=== PATIENT | female | born 1950 | race Caucasian/White ===

== ENCOUNTER 2018-10-22 13:26 | Inpatient (IN) | payer MEDICAID ==
[~2018-10-22] VITALS: Ht 157.5 cm; Wt 92.1 kg
[2018-10-22] MEDS ORDERED: ONDANSETRON HCL 4MG/2ML INJ IV ONE (14:00)
[2018-10-22] MEDS ORDERED: ONDANSETRON HCL 4MG/2ML INJ IV STA (14:06)
[2018-10-22] MEDS ORDERED: LORAZEPAM 2MG/ML CPJ IV ONE ×2 (14:30→15:00)
[2018-10-22 15:12] LABS: CLARITY URINE CLOUDY (CLEAR); COLOR URINE ORANGE (YELLOW); KETONES URINE NEGATIVE (NEGATIVE); LEUKOCYTE ESTERASE URINE 1+ (NEGATIVE); NITRITE URINE NEGATIVE (NEGATIVE); OCCULT BLOOD URINE 3+ (NEGATIVE); PH URINE 6.5 (4.5-8.0); PROTEIN URINE 2+ (NEGATIVE); SPECIFIC GRAVITY URINE 1.014 (1.005-1.030)
[2018-10-22 15:41] LABS: *AMPHETAMINES SCREEN URINE NEGATIVE (NEGATIVE); *BARBITURATES SCREEN URINE NEGATIVE (NEGATIVE); *BENZODIAZEPINES SCREEN URINE NEGATIVE (NEGATIVE); *COCAINE SCREEN URINE NEGATIVE (NEGATIVE); OPIATES URINE SCREEN NEGATIVE (NEGATIVE); PHENCYCLIDINE URINE SCREEN NEGATIVE (NEGATIVE)
[2018-10-22 15:42] LABS: CANNABINOID URINE SCREEN NEGATIVE (NEGATIVE)
[2018-10-22 15:58] LABS: METHADONE URINE SCREEN PRESUMTIVE POSITIVE (NEGATIVE)
[2018-10-22 16:33] LABS: BASOPHILS % 0.1 % (0.0-2.0); CHLORIDE 108 mEq/L (98-107); HEMATOCRIT. 34.9 % (36.0-48.0); HEMOGLOBIN. 11.4 g/dL (12.0-16.0); LYMPHOCYTES % 9.3 % (20.0-50.0); MEAN CORPUSCULAR VOLUME 79.3 fL (81.0-99.0); NEUTROPHILS % 86.6 % (40.0-76.0); PLATELET 78 x1000/uL (130-400)
[2018-10-22 16:37] LABS: ETHANOL BLOOD < 10 mg/dL
[2018-10-22] MEDS ORDERED: CEFTRIAXONE 1 G PREMIX 50 ML IV NR (16:45)
[2018-10-22] MEDS ORDERED: ONDANSETRON HCL 4MG/2ML INJ IV PRN (20:30)
[2018-10-22] MEDS ORDERED: CLONIDINE 0.1MG TABLET PO PRN (20:30)
[2018-10-22 21:37] VITALS: BP 164/87
[2018-10-22] MEDS: LORAZEPAM 2MG/ML CPJ IV PRN (22:27)
[2018-10-22] MEDS: ACETAMINOPHEN 325MG TABLET PO PRN (22:27)
[2018-10-22] MEDS: AMLODIPINE 5MG TABLET PO SCH (22:39)
[2018-10-23] VITALS: BP 149/83
[2018-10-23] MEDS ORDERED: QUET25TA34 PO (01:24)
[2018-10-23] MEDS ORDERED: QUET200T29 PO (01:24)
[2018-10-23] MEDS ORDERED: CALC500T6 PO (01:24)
[2018-10-23] MEDS ORDERED: METH10OR11 PO (01:24)
[2018-10-23 04:00] VITALS: BP_SYST 122; BP_SYST 154; BP_DIAS 80; BP_DIAS 84
[2018-10-23] MEDS: LORAZEPAM 2MG/ML CPJ IV PRN (05:26)
[2018-10-23 07:12] LABS: BASOPHILS % 0.1 % (0.0-2.0); EOSINOPHILS % 0.2 % (0.0-5.0); HEMATOCRIT. 33.6 % (36.0-48.0); HEMOGLOBIN. 11.2 g/dL (12.0-16.0); LYMPHOCYTES % 14.9 % (20.0-50.0); MEAN CORPUSCULAR VOLUME 78.3 fL (81.0-99.0); MEAN PLATELET VOLUME 6.9 fl (7.4-10.4); MONOCYTES % 7.2 % (2.0-8.0); NEUTROPHILS % 77.6 % (40.0-76.0); PLATELET 77 x1000/uL (130-400); RED CELL DISTRIBUTION WIDTH 16.2 % (11.6-14.6)
[2018-10-23 07:17] LABS: CHLORIDE 106 mEq/L (98-107)
[2018-10-23 08:00] VITALS: BP 140/76
[2018-10-23] MEDS: AMLODIPINE 5MG TABLET PO SCH ×2 (09:32→21:09)
[2018-10-23] MEDS: METHADONE HCL 10MG TABLET PO SCH (11:35)
[2018-10-23 12:00] VITALS: BP 147/63
[2018-10-23 16:00] VITALS: BP 130/80
[2018-10-23] MEDS ORDERED: CEFTRIAXONE 1 G PREMIX 50 ML IV SCH ×2 (17:00→18:30)
[2018-10-23 20:00] VITALS: BP 147/76
[2018-10-23] MEDS ORDERED: CLON2TAB11 PO (20:51)
[2018-10-23] MEDS ORDERED: QUETIAPINE FUMARATE 50MG TABLET PO SCH (21:00)
[2018-10-23 22:35] LABS: HEPATITIS B SURFACE ANTIGEN NEGATIVE
[2018-10-23 23:05] LABS: HEPATITIS A AB IGM NEGATIVE (NEGATIVE)
[2018-10-24] VITALS: BP 132/73
[2018-10-24 04:00] VITALS: BP_SYST 128; BP_SYST 129; BP_SYST 134; BP_DIAS 54; BP_DIAS 66; BP_DIAS 72
[2018-10-24 06:18] LABS: CHLORIDE 106 mEq/L (98-107)
[2018-10-24 08:00] VITALS: BP 100/56
[2018-10-24] MEDS: AMLODIPINE 5MG TABLET PO SCH (08:16)
[2018-10-24] MEDS: METHADONE HCL 10MG TABLET PO SCH (08:22)
[2018-10-24 09:16] LABS: HEMATOCRIT. 34.2 % (36.0-48.0); HEMOGLOBIN. 11.1 g/dL (12.0-16.0); MEAN CORPUSCULAR VOLUME 79.8 fL (81.0-99.0); MEAN PLATELET VOLUME 7.4 fl (7.4-10.4); PLATELET 80 x1000/uL (130-400); RED BLOOD CELL COUNT 4.28 mill/uL (4.2-5.4); RED CELL DISTRIBUTION WIDTH 16.3 % (11.6-14.6)
[2018-10-24 10:02] LABS: PLATELET ESTIMATE DECREASED
[2018-10-24] MEDS: ACETAMINOPHEN 325MG TABLET PO PRN (10:25)
[2018-10-24 12:00] VITALS: BP 99/50
[2018-10-24 15:53] VITALS: BP 99/50
[2018-10-24 16:00] VITALS: BP 114/59
[2018-10-24] MEDS: LORAZEPAM 2MG/ML CPJ IV PRN (16:32)
== END 2018-10-24 17:19 | disposition home health service (06) | DRG 720 ==
LOC: ER 13:26 → 5WST 18:31 → EDBEDREQ 18:34 → EDBEDREQTM 18:34 → ENRESERV 20:33
PROVIDERS: ADMIT Internal Medicine; ATTEND Internal Medicine
DX: A41.9 Sepsis, unspecified organism (principal); D69.6 Thrombocytopenia, unspecified; E87.8 Other disorders of electrolyte and fluid balance, not elsewhere classified; E44.1 Mild protein-calorie malnutrition; F11.20 Opioid dependence, uncomplicated; F41.9 Anxiety disorder, unspecified; G90.8 Other disorders of autonomic nervous system; E66.9 Obesity, unspecified; G40.909 Epilepsy, unspecified, not intractable, without status epilepticus; I10 Essential (primary) hypertension; M17.0 Bilateral primary osteoarthritis of knee; N39.0 Urinary tract infection, site not specified; Z86.73 Personal history of transient ischemic attack (TIA), and cerebral infarction without residual deficits; Z71.3 Dietary counseling and surveillance; Z68.37 Body mass index [BMI] 37.0-37.9, adult
CPT/HCPCS: 36415; 73560; 80048; 80305; 80307; 80320; 80329; 81003; 84443; 86705; 86709; 86803; 87077; 87186; 87340; 93005; 93306; 93970; 96374; 99285; J0696; J2060; J2405; G0480

== ENCOUNTER 2023-01-26 13:37 | Inpatient (IN) | payer MEDICAID ==
[~2023-01-26] VITALS: Ht 165.1 cm; Wt 98.0 kg
[~2023-01-26 13:37] MED LIST: CALC500T6 PO; CLON2TAB11 PO; METH10OR11 PO; QUET200T30 PO; QUET25TA36 PO
[2023-01-26] MEDS ORDERED: HYDROCODONE/ACETAMINOPHEN 10/325MG TABLET PO STA (14:43)
[2023-01-26 14:47] LABS: BASOPHILS % 0.3 % (0.0-2.0); EOSINOPHILS % 0.5 % (0.0-5.0); HEMATOCRIT. 31.6 % (36.0-48.0); LYMPHOCYTES % 12.9 % (20.0-50.0); MEAN CORPUSCULAR HEMOGLOBIN 26.6 pg (28.0-32.0); MEAN CORPUSCULAR HGB CONC 31.6 g/dL (31.0-37.0); MEAN CORPUSCULAR VOLUME 84.3 fL (81.0-99.0); MEAN PLATELET VOLUME 7.9 fl (7.4-10.4); MONOCYTES % 7.1 % (2.0-8.0); NEUTROPHILS % 79.2 % (40.0-76.0); PLATELET 63 x1000/uL (130-400); RED BLOOD CELL COUNT 3.75 mill/uL (4.2-5.4); RED CELL DISTRIBUTION WIDTH 15.5 % (11.6-14.6)
[2023-01-26 14:50] LABS: DIFFERENTIAL COMMENT 1
[2023-01-26 14:52] LABS: WHITE BLOOD COUNT 1.2 x1000/uL (4.5-11.0)
[2023-01-26] MEDS ORDERED: CLONIDINE 0.1MG TABLET PO PRN (17:15)
[2023-01-26] MEDS ORDERED: IPRATROPIUM/ALBUTEROL 0.5-3(2.5)MG/3ML NEB HHN PRN (17:15)
[2023-01-26] MEDS ORDERED: GUAIFENESIN 200MG/10ML SUGAR FREE UDC PO PRN (17:15)
[2023-01-26] MEDS ORDERED: ONDANSETRON HCL 4MG/2ML INJ IV PRN (17:15)
[2023-01-26] MEDS ORDERED: DOCUSATE SODIUM 100MG CAPSULE PO PRN (17:15)
[2023-01-26] MEDS ORDERED: MAGNESIUM/ALUMINUM HYDROXIDE/SIMETHICONE 30ML UDC PO PRN (17:15)
[2023-01-26] MEDS ORDERED: DEXTROSE 50% WATER 50ML SYRINGE IV PRN (17:30)
[2023-01-26] MEDS ORDERED: LEVE500T19 PO (17:33)
[2023-01-26] MEDS ORDERED: AMLO5TAB88 PO (17:33)
[2023-01-26] MEDS ORDERED: LOSA50TA41 PO (17:33)
[2023-01-26] MEDS ORDERED: FERR325T30 PO (17:33)
[2023-01-26] MEDS: LOSARTAN 50 MG TABLET PO SCH (18:09)
[2023-01-26] MEDS: AMLODIPINE 5MG TABLET PO SCH (18:09)
[2023-01-26] MEDS: LEVETIRACETAM 500MG TABLET PO SCH (18:09)
[2023-01-26 18:14] LABS: ALANINE AMINOTRANSFERASE 25 IU/L (10-49); ALBUMIN 2.9 g/dL (3.2-4.8); ASPARTATE AMINOTRANSFERASE 41 IU/L (<34); BILIRUBIN TOTAL 0.7 mg/dL (0.1-1.0); CALCIUM 8.4 mg/dL (8.7-10.4); CARBON DIOXIDE 24 mEq/L (21-32); CHLORIDE 106 mEq/L (98-107); CREATININE 0.8 mg/dL (0.6-1.0); ETHANOL BLOOD < 10 mg/dL (<10); GLUCOSE 398 mg/dL (70-105); POTASSIUM 3.8 mEq/L (3.5-5.1); PROTEIN TOTAL 6.9 g/dL (6.0-8.3); SODIUM 139 mEq/L (136-145); UREA NITROGEN BLOOD 11 mg/dL (9-23)
[2023-01-26] MEDS: INSULIN LISPRO 100 UNITS/ML SUBCUT SCH ×2 (18:36→22:00)
[2023-01-26 20:07] LABS: TROPONIN I HIGH SENSITIVITY 6 ng/L (3.0-34)
[2023-01-26 21:30] VITALS: BP 126/66; PULSE 81; RESP 21; TEMP 97.9
[2023-01-26] MEDS: BLOOD SUGAR DIAGNOSTIC STRIP TEST SCH (22:00)
[2023-01-27] VITALS: BP 126/66; PULSE 81; RESP 20; TEMP 97.9
[2023-01-27] MEDS: INSULIN GLARGINE 100 UNITS/ML SUBCUT SCH ×2 (00:27→22:29)
[2023-01-27 04:00] VITALS: BP 133/74; PULSE 84; RESP 20; TEMP 98.2
[2023-01-27] MEDS: KETOROLAC 15MG/ML VIAL IV PRN ×2 (07:09→14:48)
[2023-01-27 07:24] LABS: HEMATOCRIT. 27.9 % (36.0-48.0); HEMOGLOBIN. 9.2 g/dL (12.0-16.0); MEAN CORPUSCULAR HEMOGLOBIN 26.9 pg (28.0-32.0); MEAN CORPUSCULAR HGB CONC 32.9 g/dL (31.0-37.0); MEAN CORPUSCULAR VOLUME 81.9 fL (81.0-99.0); MEAN PLATELET VOLUME 7.9 fl (7.4-10.4); PLATELET 70 x1000/uL (130-400); RED BLOOD CELL COUNT 3.41 mill/uL (4.2-5.4); RED CELL DISTRIBUTION WIDTH 15.2 % (11.6-14.6)
[2023-01-27 07:34] LABS: ALANINE AMINOTRANSFERASE 23 IU/L (10-49); ALBUMIN 2.6 g/dL (3.2-4.8); ASPARTATE AMINOTRANSFERASE 38 IU/L (<34); BILIRUBIN TOTAL 0.6 mg/dL (0.1-1.0); CALCIUM 8.6 mg/dL (8.7-10.4); CARBON DIOXIDE 30 mEq/L (21-32); CHLORIDE 109 mEq/L (98-107); CHOLESTEROL 90 mg/dL (<200); GLUCOSE 139 mg/dL (70-105); HDL CHOLESTEROL 36 mg/dL (>65); LDL CHOLESTEROL 58 mg/dL (5-100); POTASSIUM 3.9 mEq/L (3.5-5.1); PROTEIN TOTAL 6.2 g/dL (6.0-8.3); SODIUM 143 mEq/L (136-145); T4 FREE 0.87 ng/dL (0.89-1.76); THYROID STIMULATING HORMONE 1.98 uIU/mL (0.55-4.78); TRIGLYCERIDE 70 mg/dL (0-150); UREA NITROGEN BLOOD 10 mg/dL (9-23)
[2023-01-27] MEDS: INSULIN LISPRO 100 UNITS/ML SUBCUT SCH ×4 (07:50→22:33)
[2023-01-27 08:00] VITALS: BP 114/61; PULSE 78; RESP 18; TEMP 99.1
[2023-01-27] MEDS: BLOOD SUGAR DIAGNOSTIC STRIP TEST SCH ×4 (08:10→21:00)
[2023-01-27 08:30] LABS: DIFFERENTIAL COMMENT 1
[2023-01-27 08:39] LABS: WHITE BLOOD COUNT 1.5 x1000/uL (4.5-11.0)
[2023-01-27] MEDS: LEVETIRACETAM 500MG TABLET PO SCH ×2 (09:00→22:26)
[2023-01-27] MEDS: AMLODIPINE 5MG TABLET PO SCH (09:00)
[2023-01-27] MEDS: LOSARTAN 50 MG TABLET PO SCH (09:00)
[2023-01-27 12:00] VITALS: BP 129/58; PULSE 76; RESP 18; TEMP 98
[2023-01-27 13:17] LABS: PLATELET ESTIMATE DECREASED
[2023-01-27 13:18] LABS: ANISOCYTOSIS 1+
[2023-01-27 16:00] VITALS: BP 160/73; PULSE 83; RESP 19; TEMP 95.9
[2023-01-27 20:00] VITALS: BP 140/66; PULSE 84; RESP 20; TEMP 97.8
[2023-01-27] MEDS: FAMOTIDINE 20MG TABLET PO SCH ×2 (22:26)
[2023-01-27 23:22] LABS: CLARITY URINE TURBID (CLEAR); COLOR URINE YELLOW (YELLOW); GLUCOSE URINE NEGATIVE (NEGATIVE); KETONES URINE TRACE (NEGATIVE); LEUKOCYTE ESTERASE URINE 2+ (NEGATIVE); NITRITE URINE NEGATIVE (NEGATIVE); OCCULT BLOOD URINE TRACE (NEGATIVE); PH URINE 5.5 (4.5-8.0); PROTEIN URINE 2+ (NEGATIVE); SPECIFIC GRAVITY URINE 1.014 (1.005-1.030)
[2023-01-27 23:45] LABS: *AMPHETAMINES SCREEN URINE NEGATIVE (NEGATIVE); *BARBITURATES SCREEN URINE NEGATIVE (NEGATIVE); *BENZODIAZEPINES SCREEN URINE NEGATIVE (NEGATIVE); *COCAINE SCREEN URINE NEGATIVE (NEGATIVE); CANNABINOID URINE SCREEN NEGATIVE (NEGATIVE); ECSTASY MDMA SCREEN URINE NEGATIVE (NEGATIVE); METHADONE URINE SCREEN Neg (NEGATIVE); OPIATES URINE SCREEN PRESUMPTIVE POSITIVE (NEGATIVE); PHENCYCLIDINE URINE SCREEN NEGATIVE (NEGATIVE)
[2023-01-27 23:48] LABS: BACTERIA URINE 3+; RBC URINE 0-2 /hpf (0-2); SQUAMOUS EPITHELIAL CELL URINE 1+ /lpf (RARE/1+); WBC URINE NONE SEEN /hpf (0-2)
[2023-01-28] VITALS: BP 102/44; PULSE 77; RESP 18; TEMP 98.4
[2023-01-28] MEDS: KETOROLAC 15MG/ML VIAL IV PRN ×2 (02:34→17:33)
[2023-01-28 04:00] VITALS: BP 122/57; PULSE 79; RESP 18; TEMP 97.8
[2023-01-28] MEDS: BLOOD SUGAR DIAGNOSTIC STRIP TEST SCH ×6 (07:20→21:00)
[2023-01-28] MEDS: INSULIN LISPRO 100 UNITS/ML SUBCUT SCH ×5 (07:50→21:00)
[2023-01-28 08:00] VITALS: BP 124/62; PULSE 74; RESP 20; TEMP 97.2
[2023-01-28] MEDS: LEVETIRACETAM 500MG TABLET PO SCH ×2 (09:05→21:42)
[2023-01-28] MEDS: LOSARTAN 50 MG TABLET PO SCH (09:05)
[2023-01-28] MEDS: AMLODIPINE 5MG TABLET PO SCH (09:06)
[2023-01-28 12:00] VITALS: BP 123/78; PULSE 80; RESP 21; TEMP 97.2
[2023-01-28 16:00] VITALS: BP 131/87; PULSE 79; RESP 20; TEMP 98.2
[2023-01-28] MEDS ORDERED: ONDANSETRON 4MG ODT PO PRN (19:02)
[2023-01-28 20:00] VITALS: BP 128/55; PULSE 83; RESP 16; TEMP 98.2
[2023-01-28] MEDS: FAMOTIDINE 20MG TABLET PO SCH (21:42)
[2023-01-28] MEDS: INSULIN GLARGINE 100 UNITS/ML SUBCUT SCH (22:14)
[2023-01-29] VITALS: BP_SYST 114; BP_SYST 117; BP_DIAS 57; BP_DIAS 60; PULSE 74; PULSE 85; RESP 18; RESP 20; TEMP 97.8; TEMP 98.2
[2023-01-29 04:00] VITALS: BP 125/83; PULSE 82; RESP 20; TEMP 98.2
[2023-01-29] MEDS: BLOOD SUGAR DIAGNOSTIC STRIP TEST SCH ×4 (06:37→21:00)
[2023-01-29] MEDS: INSULIN LISPRO 100 UNITS/ML SUBCUT SCH ×4 (06:37→21:00)
[2023-01-29 08:00] VITALS: BP 130/63; PULSE 79; RESP 19; TEMP 96.7
[2023-01-29] MEDS: LOSARTAN 50 MG TABLET PO SCH (09:06)
[2023-01-29] MEDS: AMLODIPINE 5MG TABLET PO SCH (09:06)
[2023-01-29] MEDS: LEVETIRACETAM 500MG TABLET PO SCH ×2 (09:06→21:00)
[2023-01-29 12:00] VITALS: BP 145/79; PULSE 86; RESP 20; TEMP 96.7
[2023-01-29] MEDS: KETOROLAC 15MG/ML VIAL IV PRN (13:07)
[2023-01-29 16:00] VITALS: BP 128/67; PULSE 74; RESP 20; TEMP 96.7
[2023-01-29 20:00] VITALS: BP 103/64; PULSE 77; RESP 18; TEMP 98
[2023-01-29] MEDS: FAMOTIDINE 20MG TABLET PO SCH (21:00)
[2023-01-29] MEDS: INSULIN GLARGINE 100 UNITS/ML SUBCUT SCH (21:59)
[2023-01-30] VITALS: BP 114/60; PULSE 74; RESP 18; TEMP 97.8
[2023-01-30 04:00] VITALS: BP 122/56; PULSE 74; RESP 20; TEMP 97.8
[2023-01-30] MEDS: BLOOD SUGAR DIAGNOSTIC STRIP TEST SCH ×4 (07:20→21:00)
[2023-01-30] MEDS: INSULIN LISPRO 100 UNITS/ML SUBCUT SCH ×4 (07:50→21:00)
[2023-01-30 08:00] VITALS: BP 143/78; PULSE 84; RESP 19; TEMP 96.7
[2023-01-30] MEDS: LEVETIRACETAM 500MG TABLET PO SCH ×2 (09:42→21:17)
[2023-01-30] MEDS: AMLODIPINE 5MG TABLET PO SCH (09:42)
[2023-01-30] MEDS: LOSARTAN 50 MG TABLET PO SCH (09:42)
[2023-01-30 12:00] VITALS: BP 120/68; PULSE 78; RESP 20; TEMP 95.6
[2023-01-30 16:00] VITALS: BP 154/79; PULSE 82; RESP 19; TEMP 95.7
[2023-01-30 16:31] LABS: HEMATOCRIT 29.5 % (36.0-48.0); HEMOGLOBIN 9.5 g/dL (12.0-16.0); MEAN CORPUSCULAR HEMOGLOBIN 26.4 pg (28.0-32.0); MEAN CORPUSCULAR HGB CONC 32.3 g/dL (31.0-37.0); PLATELET 70 x1000/uL (130-400); RED CELL DISTRIBUTION WIDTH 15.1 % (11.6-14.6)
[2023-01-30 16:43] LABS: WHITE BLOOD COUNT 1.1 x1000/uL (4.5-11.0)
[2023-01-30 17:12] LABS: ALANINE AMINOTRANSFERASE 25 IU/L (10-49); ALBUMIN 2.6 g/dL (3.2-4.8); ASPARTATE AMINOTRANSFERASE 55 IU/L (<34); BILIRUBIN TOTAL 0.7 mg/dL (0.1-1.0); CALCIUM 8.2 mg/dL (8.7-10.4); CARBON DIOXIDE 27 mEq/L (21-32); CHLORIDE 108 mEq/L (98-107); GLUCOSE 173 mg/dL (70-105); POTASSIUM 3.9 mEq/L (3.5-5.1); PROTEIN TOTAL 6.9 g/dL (6.0-8.3); SODIUM 142 mEq/L (136-145); UREA NITROGEN BLOOD 19 mg/dL (9-23)
[2023-01-30 20:00] VITALS: BP 158/73; PULSE 81; RESP 18; TEMP 97.7
[2023-01-30] MEDS: FAMOTIDINE 20MG TABLET PO SCH (21:17)
[2023-01-30] MEDS: INSULIN GLARGINE 100 UNITS/ML SUBCUT SCH (21:50)
[2023-01-31] VITALS: BP 140/66; PULSE 80; RESP 18; TEMP 97.7
[2023-01-31] MEDS: INSULIN LISPRO 100 UNITS/ML SUBCUT SCH ×4 (07:50→21:10)
[2023-01-31 08:00] VITALS: BP 105/40; PULSE 78; RESP 18; TEMP 97.7
[2023-01-31] MEDS: BLOOD SUGAR DIAGNOSTIC STRIP TEST SCH ×4 (08:01→21:00)
[2023-01-31] MEDS: AMLODIPINE 5MG TABLET PO SCH (09:18)
[2023-01-31] MEDS: LOSARTAN 50 MG TABLET PO SCH (09:18)
[2023-01-31] MEDS: LEVETIRACETAM 500MG TABLET PO SCH ×2 (09:18→21:03)
[2023-01-31] MEDS: ACETAMINOPHEN 325MG TABLET PO PRN ×2 (09:33→18:20)
[2023-01-31 12:00] VITALS: BP 109/52; PULSE 79; RESP 19; TEMP 97.7
[2023-01-31 16:00] VITALS: BP 124/64; PULSE 82; RESP 18; TEMP 97.9
[2023-01-31 20:00] VITALS: BP 124/59; PULSE 96; RESP 20; TEMP 98.1
[2023-01-31] MEDS: FAMOTIDINE 20MG TABLET PO SCH (21:03)
[2023-01-31] MEDS: INSULIN GLARGINE 100 UNITS/ML SUBCUT SCH (21:09)
[2023-01-31 23:06] LABS: IRON 53 ug/dL (50-170); TOTAL IRON BINDING CAPACITY 272 ug/dl (250-425)
[2023-02-01] VITALS: BP 115/85; PULSE 79; RESP 20; TEMP 97.7
[2023-02-01 04:00] VITALS: RESP 20
[2023-02-01] MEDS: BLOOD SUGAR DIAGNOSTIC STRIP TEST SCH ×4 (07:20→21:00)
[2023-02-01] MEDS: INSULIN LISPRO 100 UNITS/ML SUBCUT SCH ×4 (07:50→22:18)
[2023-02-01 08:00] VITALS: BP 134/63; PULSE 85; RESP 19; TEMP 98.1
[2023-02-01] MEDS: LOSARTAN 50 MG TABLET PO SCH (08:40)
[2023-02-01] MEDS: AMLODIPINE 5MG TABLET PO SCH (08:40)
[2023-02-01] MEDS: LEVETIRACETAM 500MG TABLET PO SCH ×2 (08:40→21:40)
[2023-02-01 10:19] LABS: BASOPHILS % 0.2 % (0.0-2.0); EOSINOPHILS % 1.1 % (0.0-5.0); HEMATOCRIT. 30.8 % (36.0-48.0); LYMPHOCYTES % 14.7 % (20.0-50.0); MEAN CORPUSCULAR HEMOGLOBIN 26.6 pg (28.0-32.0); MEAN CORPUSCULAR HGB CONC 32.4 g/dL (31.0-37.0); MEAN CORPUSCULAR VOLUME 82.1 fL (81.0-99.0); MEAN PLATELET VOLUME 7.5 fl (7.4-10.4); MONOCYTES % 6.9 % (2.0-8.0); NEUTROPHILS % 77.1 % (40.0-76.0); PLATELET 74 x1000/uL (130-400); RED BLOOD CELL COUNT 3.75 mill/uL (4.2-5.4); RED CELL DISTRIBUTION WIDTH 14.9 % (11.6-14.6); WHITE BLOOD COUNT 2.3 x1000/uL (4.5-11.0)
[2023-02-01 12:00] VITALS: BP 134/72; PULSE 88; RESP 18; TEMP 96.5
[2023-02-01] MEDS ORDERED: DIATR MEGLU/DIATRIZOATE SOLN 30ML PO NR (12:15)
[2023-02-01] MEDS ORDERED: IOHEXOL-300 100 ML BOTTLE ONE (16:43)
[2023-02-01] MEDS: FUROSEMIDE 20MG/2ML VIAL IVP SCH (18:54)
[2023-02-01 19:21] LABS: CALCIUM 8.5 mg/dL (8.7-10.4); CARBON DIOXIDE 26 mEq/L (21-32); CHLORIDE 109 mEq/L (98-107); CREATININE 0.8 mg/dL (0.6-1.0); GLUCOSE 171 mg/dL (70-105); POTASSIUM 4.1 mEq/L (3.5-5.1); SODIUM 141 mEq/L (136-145); UREA NITROGEN BLOOD 17 mg/dL (9-23)
[2023-02-01 20:00] VITALS: BP 132/81; PULSE 98; RESP 20; TEMP 99.7
[2023-02-01] MEDS: FAMOTIDINE 20MG TABLET PO SCH (21:40)
[2023-02-01 21:55] LABS: INR 1.2; PROTHROMBIN TIME 12.7 sec (9.6-11.0)
[2023-02-01] MEDS: ACETAMINOPHEN 325MG TABLET PO PRN (22:10)
[2023-02-01] MEDS: INSULIN GLARGINE 100 UNITS/ML SUBCUT SCH (22:17)
[2023-02-01 22:41] LABS: HEPATITIS A AB IGM NEGATIVE (Negative); HEPATITIS B CORE AB IGM NEGATIVE (Negative); HEPATITIS B SURFACE ANTIGEN NEGATIVE (Negative); HEPATITIS C AB REACTIVE (Pos) (Negative)
[2023-02-02] VITALS: BP 137/67; PULSE 85; RESP 18; TEMP 98.1
[2023-02-02 04:00] VITALS: RESP 18; TEMP 98.3
[2023-02-02] MEDS: BLOOD SUGAR DIAGNOSTIC STRIP TEST SCH ×4 (06:24→21:36)
[2023-02-02] MEDS: INSULIN LISPRO 100 UNITS/ML SUBCUT SCH ×4 (07:50→21:40)
[2023-02-02 08:00] VITALS: BP 134/75; PULSE 81; RESP 17; TEMP 97.9
[2023-02-02] MEDS: SPIRONOLACTONE 25MG TABLET PO SCH (09:15)
[2023-02-02] MEDS: AMLODIPINE 5MG TABLET PO SCH (09:39)
[2023-02-02] MEDS: LEVETIRACETAM 500MG TABLET PO SCH ×2 (09:39→21:35)
[2023-02-02] MEDS: LOSARTAN 50 MG TABLET PO SCH (09:40)
[2023-02-02] MEDS: ACETAMINOPHEN 325MG TABLET PO PRN ×2 (09:40→18:37)
[2023-02-02] MEDS: FUROSEMIDE 20MG/2ML VIAL IVP SCH (09:40)
[2023-02-02 12:00] VITALS: BP 133/67; PULSE 79; RESP 19; TEMP 97.7
[2023-02-02] MEDS ORDERED: SODIUM BICARBONATE 4% (2.4MEQ) 5ML VIAL IV ONE (12:48)
[2023-02-02] MEDS ORDERED: LIDOCAINE HCL 1% 10 MG/ML 10ML VIAL ONE (12:48)
[2023-02-02 13:20] LABS: FERRITIN 79 ng/mL (10-291); FOLIC ACID (FOLATE) SERUM 15.49 ng/mL (>5.38); VITAMIN B12 SERUM 742 pg/mL (211-911)
[2023-02-02 16:00] VITALS: BP 127/72; PULSE 87; RESP 18; TEMP 97.9
[2023-02-02 20:00] VITALS: BP 158/66; PULSE 98; RESP 16; TEMP 97.7
[2023-02-02] MEDS: FAMOTIDINE 20MG TABLET PO SCH (21:35)
[2023-02-02] MEDS: INSULIN GLARGINE 100 UNITS/ML SUBCUT SCH (21:51)
[2023-02-03] VITALS: BP 123/64; PULSE 77; RESP 17; TEMP 97.5
[2023-02-03 04:00] VITALS: BP 106/31; PULSE 79; RESP 17; TEMP 97.7
[2023-02-03] MEDS: BLOOD SUGAR DIAGNOSTIC STRIP TEST SCH ×4 (06:33→21:07)
[2023-02-03] MEDS: INSULIN LISPRO 100 UNITS/ML SUBCUT SCH ×4 (07:50→22:29)
[2023-02-03 08:00] VITALS: BP 134/72; PULSE 86; RESP 19; TEMP 97.9
[2023-02-03] MEDS: AMLODIPINE 5MG TABLET PO SCH (08:31)
[2023-02-03] MEDS: FUROSEMIDE 20MG/2ML VIAL IVP SCH (08:32)
[2023-02-03] MEDS: LEVETIRACETAM 500MG TABLET PO SCH ×2 (08:32→21:17)
[2023-02-03] MEDS: SPIRONOLACTONE 25MG TABLET PO SCH (08:32)
[2023-02-03] MEDS: LOSARTAN 50 MG TABLET PO SCH (08:32)
[2023-02-03] MEDS ORDERED: FUROSEMIDE 20MG/2ML VIAL IVP NR (09:45)
[2023-02-03 11:56] VITALS: BP 117/64; PULSE 88; RESP 17; TEMP 98.8
[2023-02-03] MEDS: PANTOPRAZOLE SODIUM 40 MG/VIAL IV SCH (12:45)
[2023-02-03 12:59] LABS: HEMATOCRIT 31.4 % (36.0-48.0); HEMOGLOBIN 10.1 g/dL (12.0-16.0); MEAN CORPUSCULAR HEMOGLOBIN 26.2 pg (28.0-32.0); MEAN CORPUSCULAR VOLUME 81.7 fL (81.0-99.0); PLATELET 74 x1000/uL (130-400); RED BLOOD CELL COUNT 3.84 mill/uL (4.2-5.4)
[2023-02-03 13:08] LABS: ALANINE AMINOTRANSFERASE 30 IU/L (10-49); ALBUMIN 3.1 g/dL (3.2-4.8); AMMONIA 76 uMol/L (<32); ASPARTATE AMINOTRANSFERASE 56 IU/L (<34); BILIRUBIN TOTAL 0.9 mg/dL (0.1-1.0); CALCIUM 8.5 mg/dL (8.7-10.4); CARBON DIOXIDE 25 mEq/L (21-32); CHLORIDE 106 mEq/L (98-107); CREATININE 0.8 mg/dL (0.6-1.0); GLUCOSE 185 mg/dL (70-105); POTASSIUM 3.7 mEq/L (3.5-5.1); PROTEIN TOTAL 7.8 g/dL (6.0-8.3); SODIUM 139 mEq/L (136-145); UREA NITROGEN BLOOD 16 mg/dL (9-23)
[2023-02-03 16:00] VITALS: BP 120/59; PULSE 100; RESP 19; TEMP 98.6
[2023-02-03] MEDS ORDERED: CARVEDILOL 3.125 MG TABLET PO NR (17:45)
[2023-02-03 20:00] VITALS: BP 148/70; PULSE 71; RESP 18; TEMP 97.4
[2023-02-03] MEDS: FAMOTIDINE 20MG TABLET PO SCH (21:17)
[2023-02-03] MEDS: INSULIN GLARGINE 100 UNITS/ML SUBCUT SCH (22:34)
[2023-02-04 04:00] VITALS: BP 111/54; PULSE 74; RESP 18; TEMP 98.1
[2023-02-04] MEDS: BLOOD SUGAR DIAGNOSTIC STRIP TEST SCH ×4 (06:59→21:00)
[2023-02-04 07:04] LABS: HEMATOCRIT. 29.1 % (36.0-48.0); HEMOGLOBIN. 9.4 g/dL (12.0-16.0); MEAN CORPUSCULAR HEMOGLOBIN 26.6 pg (28.0-32.0); MEAN CORPUSCULAR HGB CONC 32.3 g/dL (31.0-37.0); MEAN CORPUSCULAR VOLUME 82.3 fL (81.0-99.0); MEAN PLATELET VOLUME 7.9 fl (7.4-10.4); PLATELET 69 x1000/uL (130-400); RED BLOOD CELL COUNT 3.54 mill/uL (4.2-5.4); RED CELL DISTRIBUTION WIDTH 14.8 % (11.6-14.6)
[2023-02-04 07:10] LABS: INR 1.2; PROTHROMBIN TIME 12.7 sec (9.6-11.0)
[2023-02-04 07:20] LABS: ALANINE AMINOTRANSFERASE 26 IU/L (10-49); ALBUMIN 2.8 g/dL (3.2-4.8); AMMONIA 92 uMol/L (<32); ASPARTATE AMINOTRANSFERASE 48 IU/L (<34); BILIRUBIN DIRECT 0.3 mg/dL (<=3.0); BILIRUBIN TOTAL 0.9 mg/dL (0.1-1.0); CALCIUM 8.6 mg/dL (8.7-10.4); CARBON DIOXIDE 27 mEq/L (21-32); CHLORIDE 108 mEq/L (98-107); CREATININE 0.8 mg/dL (0.6-1.0); GLUCOSE 106 mg/dL (70-105); POTASSIUM 3.7 mEq/L (3.5-5.1); SODIUM 141 mEq/L (136-145); UREA NITROGEN BLOOD 13 mg/dL (9-23)
[2023-02-04] MEDS: INSULIN LISPRO 100 UNITS/ML SUBCUT SCH ×4 (07:33→21:00)
[2023-02-04 08:00] VITALS: BP 116/49; PULSE 81; RESP 18; TEMP 98.2
[2023-02-04 08:28] LABS: DIFFERENTIAL COMMENT 1; WHITE BLOOD COUNT 1.4 x1000/uL (4.5-11.0)
[2023-02-04] MEDS: SPIRONOLACTONE 50MG TABLET PO SCH (09:00)
[2023-02-04] MEDS: LOSARTAN 50 MG TABLET PO SCH (09:00)
[2023-02-04] MEDS: AMLODIPINE 5MG TABLET PO SCH (09:00)
[2023-02-04] MEDS: LEVETIRACETAM 500MG TABLET PO SCH ×2 (09:00→21:00)
[2023-02-04] MEDS ORDERED: FUROSEMIDE 40MG/4ML VIAL IVP SCH (09:00)
[2023-02-04] MEDS: PANTOPRAZOLE SODIUM 40 MG/VIAL IV SCH (09:20)
[2023-02-04 12:00] VITALS: BP 137/73; PULSE 82; RESP 18; TEMP 98.4
[2023-02-04] MEDS ORDERED: ALBUMIN HUMAN 25GM/100ML (25%) IV NR (13:00)
[2023-02-04] MEDS: LACTULOSE 20G/30ML UDC PO SCH ×2 (14:00→21:37)
[2023-02-04 16:00] VITALS: BP 135/76; PULSE 81; RESP 18; TEMP 98.3
[2023-02-04 16:40] LABS: PLATELET ESTIMATE NORMAL
[2023-02-04 20:00] VITALS: BP 129/65; PULSE 69; RESP 17; TEMP 98.3
[2023-02-04] MEDS: FAMOTIDINE 20MG TABLET PO SCH (21:00)
[2023-02-04] MEDS: INSULIN GLARGINE 100 UNITS/ML SUBCUT SCH (21:52)
[2023-02-05] VITALS: BP 129/64; PULSE 81; RESP 20; TEMP 97.7
[2023-02-05 04:00] VITALS: BP 116/59; PULSE 79; RESP 17; TEMP 98
[2023-02-05] MEDS: LACTULOSE 20G/30ML UDC PO SCH ×4 (06:00→22:18)
[2023-02-05] MEDS: INSULIN LISPRO 100 UNITS/ML SUBCUT SCH ×4 (07:19→22:15)
[2023-02-05] MEDS: BLOOD SUGAR DIAGNOSTIC STRIP TEST SCH ×4 (07:19→21:00)
[2023-02-05 08:00] VITALS: BP_SYST 154; BP_SYST 96; BP_DIAS 48; BP_DIAS 94; PULSE 100; PULSE 71; RESP 19; TEMP 98.2; TEMP 98.4
[2023-02-05 08:03] LABS: HEMATOCRIT. 28.9 % (36.0-48.0); HEMOGLOBIN. 9.3 g/dL (12.0-16.0); MEAN CORPUSCULAR HEMOGLOBIN 26.5 pg (28.0-32.0); MEAN CORPUSCULAR HGB CONC 32.3 g/dL (31.0-37.0); MEAN CORPUSCULAR VOLUME 81.9 fL (81.0-99.0); MEAN PLATELET VOLUME 7.8 fl (7.4-10.4); PLATELET 69 x1000/uL (130-400); RED BLOOD CELL COUNT 3.53 mill/uL (4.2-5.4); RED CELL DISTRIBUTION WIDTH 14.8 % (11.6-14.6)
[2023-02-05] MEDS: LOSARTAN 50 MG TABLET PO SCH (09:00)
[2023-02-05] MEDS: AMLODIPINE 5MG TABLET PO SCH (09:00)
[2023-02-05 09:06] LABS: AMMONIA 124 uMol/L (<32)
[2023-02-05 09:14] LABS: DIFFERENTIAL COMMENT 1
[2023-02-05] MEDS: LEVETIRACETAM 500MG TABLET PO SCH ×2 (09:16→22:11)
[2023-02-05] MEDS: PANTOPRAZOLE SODIUM 40 MG/VIAL IV SCH (09:16)
[2023-02-05 09:19] LABS: WHITE BLOOD COUNT 1.4 x1000/uL (4.5-11.0)
[2023-02-05] MEDS: SPIRONOLACTONE 50MG TABLET PO SCH (09:19)
[2023-02-05 09:26] LABS: CALCIUM 8.6 mg/dL (8.7-10.4); CARBON DIOXIDE 26 mEq/L (21-32); CHLORIDE 108 mEq/L (98-107); CREATININE 0.8 mg/dL (0.6-1.0); GLUCOSE 116 mg/dL (70-105); POTASSIUM 3.7 mEq/L (3.5-5.1); SODIUM 141 mEq/L (136-145); UREA NITROGEN BLOOD 11 mg/dL (9-23)
[2023-02-05 12:00] VITALS: BP 106/53; PULSE 98; RESP 19; TEMP 98.2
[2023-02-05 16:00] VITALS: BP 125/58; PULSE 74; RESP 19; TEMP 98.1
[2023-02-05 16:54] LABS: PLATELET ESTIMATE DECREASED
[2023-02-05 20:00] VITALS: BP 118/50; PULSE 76; RESP 18; TEMP 97.9
[2023-02-05] MEDS: INSULIN GLARGINE 100 UNITS/ML SUBCUT SCH (22:00)
[2023-02-05] MEDS: RIFAXIMIN 550 MG TABLET PO SCH (22:11)
[2023-02-05] MEDS: FAMOTIDINE 20MG TABLET PO SCH (22:11)
[2023-02-06 04:00] VITALS: BP 111/48; PULSE 83; RESP 18; TEMP 96.3
[2023-02-06] MEDS: LACTULOSE 20G/30ML UDC PO SCH ×3 (06:21→12:00)
[2023-02-06] MEDS: BLOOD SUGAR DIAGNOSTIC STRIP TEST SCH ×2 (06:23→12:49)
[2023-02-06 07:27] LABS: HEMATOCRIT. 27.6 % (36.0-48.0); HEMOGLOBIN. 9.3 g/dL (12.0-16.0); MEAN CORPUSCULAR HEMOGLOBIN 26.9 pg (28.0-32.0); MEAN CORPUSCULAR HGB CONC 33.5 g/dL (31.0-37.0); MEAN CORPUSCULAR VOLUME 80.2 fL (81.0-99.0); PLATELET 66 x1000/uL (130-400); RED BLOOD CELL COUNT 3.45 mill/uL (4.2-5.4)
[2023-02-06 07:48] LABS: CALCIUM 8.6 mg/dL (8.7-10.4); CARBON DIOXIDE 25 mEq/L (21-32); CHLORIDE 108 mEq/L (98-107); CREATININE 0.9 mg/dL (0.6-1.0); GLUCOSE 156 mg/dL (70-105); SODIUM 140 mEq/L (136-145); UREA NITROGEN BLOOD 15 mg/dL (9-23)
[2023-02-06 08:00] VITALS: BP 119/58; PULSE 85; RESP 18; TEMP 97.5
[2023-02-06 08:22] LABS: DIFFERENTIAL COMMENT 1
[2023-02-06 08:29] LABS: AMMONIA 114 uMol/L (<32)
[2023-02-06] MEDS: PANTOPRAZOLE SODIUM 40 MG/VIAL IV SCH (08:42)
[2023-02-06] MEDS: LEVETIRACETAM 500MG TABLET PO SCH (08:43)
[2023-02-06] MEDS: AMLODIPINE 5MG TABLET PO SCH (08:43)
[2023-02-06] MEDS: INSULIN LISPRO 100 UNITS/ML SUBCUT SCH ×2 (08:59→13:24)
[2023-02-06] MEDS: RIFAXIMIN 550 MG TABLET PO SCH (09:23)
[2023-02-06] MEDS ORDERED: LACT10SO7 PO (10:29)
[2023-02-06] MEDS ORDERED: FURO40TA5 PO (10:29)
[2023-02-06] MEDS ORDERED: ALD50 PO (10:29)
[2023-02-06] MEDS ORDERED: RIFA550T PO (10:29)
[2023-02-06] MEDS ORDERED: TOPUD PO (10:29)
[2023-02-06] MEDS ORDERED: PROT40 PO (10:29)
[2023-02-06] MEDS ORDERED: INSU100I28 SQ (11:15)
[2023-02-06 12:00] VITALS: BP 121/53; PULSE 104; RESP 18; TEMP 97.5
[2023-02-06 12:56] VITALS: BP 121/87; PULSE 88; TEMP 98.5; O2SAT 98
[2023-02-06] MEDS ORDERED: SPIRONOLACTONE 50MG TABLET PO SCH (21:00)
[2023-02-07 12:49] LABS: ANISOCYTOSIS 1+
[2023-02-07 12:50] LABS: PLATELET ESTIMATE MARKEDLY DECREASED
== END 2023-02-06 16:05 | DRG 247 ==
LOC: ER 13:37 → 6EST 16:07 → EDBEDREQ 16:10 → EDBEDREQTM 16:10
PROVIDERS: ADMIT Internal Medicine; ATTEND Internal Medicine
DX: K56.7 Ileus, unspecified (principal); E43 Unspecified severe protein-calorie malnutrition; D61.818 Other pancytopenia; K76.6 Portal hypertension; R18.8 Other ascites; L97.929 Non-pressure chronic ulcer of unspecified part of left lower leg with unspecified severity; K80.20 Calculus of gallbladder without cholecystitis without obstruction; M17.10 Unilateral primary osteoarthritis, unspecified knee; Z68.35 Body mass index [BMI] 35.0-35.9, adult; Z20.822 Contact with and (suspected) exposure to COVID-19; K29.80 Duodenitis without bleeding; Q63.2 Ectopic kidney; E11.9 Type 2 diabetes mellitus without complications; B19.20 Unspecified viral hepatitis C without hepatic coma; E03.8 Other specified hypothyroidism; Z99.3 Dependence on wheelchair; I11.9 Hypertensive heart disease without heart failure; K74.60 Unspecified cirrhosis of liver; Z79.4 Long term (current) use of insulin; Z79.899 Other long term (current) drug therapy; Z86.73 Personal history of transient ischemic attack (TIA), and cerebral infarction without residual deficits; Z90.49 Acquired absence of other specified parts of digestive tract
CPT/HCPCS: 36415; 71045; 74018; 74177; 76705; 80048; 80053; 80061; 80076; 80305; 80320; 81003; 82010; 82105; 82140; 82378; 82607; 82728; 82746; 82962; 83036; 83540; 83550; 83880; 84439; 84443; 84484; 85025; 85027; 86705; 86709; 87340; 87426; 93005; 93970; 97110; 97162; 97166; 97530; 97535; 99285; C1893; C9113; J1815; J1885; J1940; J3490; P9047; Q9963; Q9967; G0480

== ENCOUNTER 2023-07-14 23:25 | Inpatient (IN) | payer MEDICAID ==
[~2023-07-14] VITALS: Ht 160 cm; Wt 85.3 kg
[~2023-07-14 23:25] MED LIST changes: +ALD50 PO; +FERR325T30 PO; +FURO40TA5 PO; +INSU100I28 SQ; +LACT10SO7 PO; +LEVE500T19 PO; -METH10OR11 PO; +PROT40 PO; -QUET200T30 PO; -QUET25TA36 PO; +RIFA550T PO; +TOPUD PO
[2023-07-15] VITALS (7 sets, daily range): BP systolic 96–147; BP diastolic 46–77; PULSE 85–91; RESP 18–20; TEMP 97–99
[2023-07-15 00:18] LABS: HEMATOCRIT. 30.6 % (36.0-48.0); HEMOGLOBIN. 10.2 g/dL (12.0-16.0); MEAN CORPUSCULAR HEMOGLOBIN 28.3 pg (28.0-32.0); MEAN CORPUSCULAR HGB CONC 33.4 g/dL (31.0-37.0); MEAN CORPUSCULAR VOLUME 84.7 fL (81.0-99.0); MEAN PLATELET VOLUME 8.1 fl (7.4-10.4); PLATELET 65 x1000/uL (130-400); RED BLOOD CELL COUNT 3.61 mill/uL (4.2-5.4); RED CELL DISTRIBUTION WIDTH 16.5 % (11.6-14.6)
[2023-07-15 00:29] LABS: CHLORIDE 104 mEq/L (98-107); POTASSIUM 3.8 mEq/L (3.5-5.1); SODIUM 136 mEq/L (136-145)
[2023-07-15 00:30] LABS: CALCIUM 8.8 mg/dL (8.7-10.4); CARBON DIOXIDE 27 mEq/L (21-32); DIFFERENTIAL COMMENT 1
[2023-07-15 00:31] LABS: WHITE BLOOD COUNT 1.6 x1000/uL (4.5-11.0)
[2023-07-15 00:35] LABS: CREATININE 1.3 mg/dL (0.6-1.0); UREA NITROGEN BLOOD 13 mg/dL (9-23)
[2023-07-15 00:37] LABS: ALANINE AMINOTRANSFERASE 29 IU/L (10-49); ALBUMIN 2.9 g/dL (3.2-4.8); ASPARTATE AMINOTRANSFERASE 38 IU/L (<34); BILIRUBIN TOTAL 0.8 mg/dL (0.1-1.0); PROTEIN TOTAL 7.4 g/dL (6.0-8.3)
[2023-07-15 00:46] LABS: GLUCOSE 479 mg/dL (70-105)
[2023-07-15 01:10] LABS: BETA HYDROXYBUTYRATE 0.2 mMol/L (0.0-0.3)
[2023-07-15 01:48] LABS: PLATELET ESTIMATE DECREASED
[2023-07-15] MEDS: INSULIN REGULAR (HUMULIN R) 300UNITS/3ML VIAL IV ONE (02:14)
[2023-07-15] MEDS ORDERED: ACETAMINOPHEN 325MG TABLET PO PRN (07:00)
[2023-07-15] MEDS ORDERED: IPRATROPIUM/ALBUTEROL 0.5-3(2.5)MG/3ML NEB HHN PRN (07:00)
[2023-07-15] MEDS ORDERED: DEXTROSE 50% WATER 50ML SYRINGE IV PRN (07:00)
[2023-07-15] MEDS ORDERED: DOCUSATE SODIUM 100MG CAPSULE PO PRN (07:00)
[2023-07-15] MEDS ORDERED: CLONIDINE 0.1MG TABLET PO PRN (07:00)
[2023-07-15] MEDS: BLOOD SUGAR DIAGNOSTIC STRIP TEST SCH (07:20)
[2023-07-15] MEDS: INSULIN LISPRO 100 UNITS/ML SUBCUT SCH (08:39)
[2023-07-15] MEDS: ACETAMINOPHEN 325MG TABLET PO PRN (08:42)
[2023-07-15] MEDS: TRAMADOL 50MG TABLET PO PRN (12:19)
[2023-07-15] MEDS: INSULIN GLARGINE 100 UNITS/ML SUBCUT NR (13:33)
[2023-07-15 16:52] LABS: CLARITY URINE TURBID (CLEAR); COLOR URINE YELLOW (YELLOW); GLUCOSE URINE 3+ (NEGATIVE); KETONES URINE NEGATIVE (NEGATIVE); LEUKOCYTE ESTERASE URINE NEGATIVE (NEGATIVE); NITRITE URINE NEGATIVE (NEGATIVE); OCCULT BLOOD URINE NEGATIVE (NEGATIVE); PROTEIN URINE 2+ (NEGATIVE); SPECIFIC GRAVITY URINE 1.048 (1.005-1.030)
[2023-07-15 17:09] LABS: *AMPHETAMINES SCREEN URINE NEGATIVE (NEGATIVE); *BARBITURATES SCREEN URINE NEGATIVE (NEGATIVE); *BENZODIAZEPINES SCREEN URINE NEGATIVE (NEGATIVE); *COCAINE SCREEN URINE NEGATIVE (NEGATIVE)
[2023-07-15 17:10] LABS: CANNABINOID URINE SCREEN NEGATIVE (NEGATIVE); ECSTASY MDMA SCREEN URINE NEGATIVE (NEGATIVE); METHADONE URINE SCREEN NEGATIVE (NEGATIVE); OPIATES URINE SCREEN PRESUMPTIVE POSITIVE (NEGATIVE); PHENCYCLIDINE URINE SCREEN NEGATIVE (NEGATIVE)
[2023-07-15 17:17] LABS: BACTERIA URINE 2+; RBC URINE 0-2 /hpf (0-2); SQUAMOUS EPITHELIAL CELL URINE 2+ /lpf (RARE/1+)
[2023-07-15] MEDS: INSULIN GLARGINE 100 UNITS/ML SUBCUT SCH (21:10)
[2023-07-15] MEDS ORDERED: LORAZEPAM 2MG/ML INJ ONE (22:53)
[2023-07-15] MEDS ORDERED: LEVETIRACETAM 1,000 MG in SODIUM CHLORIDE 0.9% 100 ML IV SCH (23:00)
[2023-07-15] MEDS: LEVETIRACETAM 1000MG PREMIX 100 ML IV NR (23:04)
[2023-07-15] MEDS: LORAZEPAM 2MG/ML INJ IV NR (23:05)
[2023-07-16] VITALS (50 sets, daily range): BP systolic 110–147; BP diastolic 63–90; PULSE 74–106; RESP 11–38; TEMP 97.3–98.8
[2023-07-16] MEDS: CEFTRIAXONE 1GM/50ML 50 ML IV SCH (00:14)
[2023-07-16] MEDS: INSULIN REGULAR (HUMULIN R) 300UNITS/3ML VIAL SUBCUT NR (00:19)
[2023-07-16 06:24] LABS: CARBON DIOXIDE 25 mEq/L (21-32)
[2023-07-16 06:26] LABS: CALCIUM 8.4 mg/dL (8.7-10.4)
[2023-07-16 06:28] LABS: HEMATOCRIT. 29.6 % (36.0-48.0); HEMOGLOBIN. 9.5 g/dL (12.0-16.0); MEAN CORPUSCULAR HEMOGLOBIN 27.4 pg (28.0-32.0); MEAN CORPUSCULAR HGB CONC 32.1 g/dL (31.0-37.0); MEAN CORPUSCULAR VOLUME 85.5 fL (81.0-99.0); MEAN PLATELET VOLUME 7.7 fl (7.4-10.4); PLATELET 56 x1000/uL (130-400); RED BLOOD CELL COUNT 3.46 mill/uL (4.2-5.4); RED CELL DISTRIBUTION WIDTH 16.7 % (11.6-14.6)
[2023-07-16 06:30] LABS: CREATININE 0.9 mg/dL (0.6-1.0); GLUCOSE 123 mg/dL (70-105); UREA NITROGEN BLOOD 9 mg/dL (9-23)
[2023-07-16 06:47] LABS: DIFFERENTIAL COMMENT 1
[2023-07-16 06:48] LABS: WHITE BLOOD COUNT 1.7 x1000/uL (4.5-11.0)
[2023-07-16 10:25] LABS: CHLORIDE 110 mEq/L (98-107); POTASSIUM 3.8 mEq/L (3.5-5.1); SODIUM 140 mEq/L (136-145)
[2023-07-16] MEDS: LEVETIRACETAM 500MG PREMIX 100 ML IV SCH (11:10)
[2023-07-16] MEDS: ONDANSETRON HCL 4MG/2ML INJ IV PRN (11:21)
[2023-07-16 12:12] LABS: ANISOCYTOSIS 1+; OVALOCYTES 1+; PLATELET ESTIMATE DECREASED
[2023-07-17] VITALS (17 sets, daily range): BP systolic 102–152; BP diastolic 56–111; PULSE 78–107; RESP 14–23; TEMP 97.3–97.7
[2023-07-17 11:26] LABS: HEMATOCRIT. 29.7 % (36.0-48.0); HEMOGLOBIN. 9.7 g/dL (12.0-16.0); MEAN CORPUSCULAR HEMOGLOBIN 27.6 pg (28.0-32.0); MEAN CORPUSCULAR HGB CONC 32.6 g/dL (31.0-37.0); MEAN CORPUSCULAR VOLUME 84.6 fL (81.0-99.0); MEAN PLATELET VOLUME 7.4 fl (7.4-10.4); PLATELET 58 x1000/uL (130-400); RED BLOOD CELL COUNT 3.51 mill/uL (4.2-5.4); RED CELL DISTRIBUTION WIDTH 16.8 % (11.6-14.6)
[2023-07-17 11:30] LABS: CHLORIDE 107 mEq/L (98-107); POTASSIUM 3.8 mEq/L (3.5-5.1); SODIUM 136 mEq/L (136-145)
[2023-07-17 11:31] LABS: CARBON DIOXIDE 26 mEq/L (21-32)
[2023-07-17 11:32] LABS: CALCIUM 8.2 mg/dL (8.7-10.4)
[2023-07-17 11:36] LABS: CREATININE 0.9 mg/dL (0.6-1.0)
[2023-07-17 11:37] LABS: GLUCOSE 237 mg/dL (70-105); UREA NITROGEN BLOOD 12 mg/dL (9-23)
[2023-07-17 11:38] LABS: DIFFERENTIAL COMMENT 1
[2023-07-17 11:42] LABS: WHITE BLOOD COUNT 1.8 x1000/uL (4.5-11.0)
[2023-07-17] MEDS ORDERED: NALOXONE HCL 0.4MG/ML VIAL IV PRN (14:45)
[2023-07-17 16:22] LABS: ANISOCYTOSIS 1+; PLATELET ESTIMATE DECREASED
[2023-07-17] MEDS: LORAZEPAM 2MG/ML INJ IV PRN (18:50)
[2023-07-18] VITALS: BP 138/71; PULSE 99; RESP 23; TEMP 97.7
[2023-07-18] MEDS: QUETIAPINE FUMARATE 50MG TABLET PO SCH (01:13)
[2023-07-18 04:00] VITALS: BP 99/58; PULSE 111; RESP 22
[2023-07-18 08:00] VITALS: BP 121/71; PULSE 95; RESP 19; TEMP 98.5
[2023-07-18 08:54] LABS: HEMOGLOBIN. 8.8 g/dL (12.0-16.0); MEAN CORPUSCULAR HEMOGLOBIN 27.1 pg (28.0-32.0); MEAN CORPUSCULAR HGB CONC 32.7 g/dL (31.0-37.0); MEAN PLATELET VOLUME 7.7 fl (7.4-10.4); PLATELET 51 x1000/uL (130-400); RED BLOOD CELL COUNT 3.25 mill/uL (4.2-5.4); RED CELL DISTRIBUTION WIDTH 16.7 % (11.6-14.6)
[2023-07-18 09:01] LABS: CALCIUM 8.3 mg/dL (8.7-10.4)
[2023-07-18 09:25] LABS: DIFFERENTIAL COMMENT 1
[2023-07-18 11:22] LABS: INR 1.2
[2023-07-18 12:00] VITALS: BP 108/60; PULSE 94; RESP 19; TEMP 97.1
[2023-07-18 16:00] VITALS: BP_SYST 108; BP_SYST 148; BP_DIAS 60; BP_DIAS 78; PULSE 91; PULSE 94; RESP 18; TEMP 97.1; TEMP 97.5
[2023-07-18] MEDS: IOHEXOL-350 100 ML BOTTLE ONE (18:54)
[2023-07-18] MEDS: IOHEXOL-300 100 ML BOTTLE ONE (18:54)
[2023-07-18 20:00] VITALS: BP 127/64; PULSE 92; RESP 19; TEMP 100.9
[2023-07-19] VITALS: BP 103/59; PULSE 100; RESP 19; TEMP 98.2
[2023-07-19 02:19] LABS: GIANT PLATELETS FEW; OVALOCYTES 3+; PLATELET ESTIMATE MARKEDLY DECREASED
[2023-07-19 04:00] VITALS: BP 100/52; PULSE 98; RESP 20; TEMP 97.9
[2023-07-19 08:00] VITALS: BP 125/63; PULSE 93; RESP 20; TEMP 97
[2023-07-19 12:00] VITALS: BP 119/60; PULSE 100; RESP 18; TEMP 97.5
[2023-07-19 16:00] VITALS: BP 120/59; PULSE 91; RESP 18; TEMP 97
[2023-07-19 20:00] VITALS: BP 123/54; PULSE 97; RESP 18; TEMP 98.8
[2023-07-19] MEDS: INSULIN GLARGINE 100 UNITS/ML SUBCUT SCH (22:14)
[2023-07-20] VITALS: PULSE 109; RESP 18; TEMP 98.4
[2023-07-20 04:00] VITALS: BP 125/57; PULSE 109; RESP 18; TEMP 98.4
[2023-07-20 08:00] VITALS: BP 158/65; PULSE 86; RESP 18; TEMP 97.9
[2023-07-20 12:00] VITALS: BP 119/77; PULSE 79; RESP 20; TEMP 98.7
[2023-07-20] MEDS ORDERED: LANTUSUD SUBCUT (13:31)
[2023-07-20 16:00] VITALS: BP 115/76; PULSE 103; RESP 20; TEMP 98.7
[2023-07-20 20:00] VITALS: BP 116/60; PULSE 104; RESP 19; TEMP 100
[2023-07-21] VITALS: BP 120/63; PULSE 107; RESP 18; TEMP 98.8
[2023-07-21 04:00] VITALS: BP 108/60; PULSE 105; RESP 20; TEMP 99.1
[2023-07-21 08:00] VITALS: BP 127/78; PULSE 97; RESP 18; TEMP 97.9
[2023-07-21 12:04] VITALS: BP 143/76; PULSE 89; RESP 20; TEMP 98.9
[2023-07-21 16:00] VITALS: BP 123/78; PULSE 64; RESP 20; TEMP 98.7
[2023-07-21 18:08] VITALS: BP 123/78; PULSE 64; TEMP 98.7; O2SAT 93
== END 2023-07-21 19:09 | disposition home or self-care (01) | DRG 420 ==
LOC: ER 23:25 → 5WST 07-15 01:45 → 6EST 07-15 06:11 → 5EST 07-16 01:40 → 7WST 07-18 13:01
PROVIDERS: ADMIT Family Medicine Adult Medicine; ATTEND Family Medicine Adult Medicine
PROC: 4A00X4Z Measurement of Central Nervous Electrical Activity, External Approach (ICD-10-PCS; principal; 2023-07-17)
DX: E11.65 Type 2 diabetes mellitus with hyperglycemia (principal); N17.0 Acute kidney failure with tubular necrosis; D61.818 Other pancytopenia; K74.60 Unspecified cirrhosis of liver; D72.819 Decreased white blood cell count, unspecified; G40.409 Other generalized epilepsy and epileptic syndromes, not intractable, without status epilepticus; I10 Essential (primary) hypertension; K76.6 Portal hypertension; B19.20 Unspecified viral hepatitis C without hepatic coma; R18.8 Other ascites; R29.6 Repeated falls; R16.1 Splenomegaly, not elsewhere classified; R80.9 Proteinuria, unspecified; Z79.899 Other long term (current) drug therapy
CPT/HCPCS: 36415; 71260; 71275; 73562; 74177; 80048; 80053; 80305; 81003; 82010; 82962; 83036; 84145; 85025; 93970; 95816; 97162; 99285; J0696; J1815; J1953; J2060; J2405; Q9967